=== PATIENT | female | born 1940 | race Caucasian/White ===

== ENCOUNTER 2021-03-23 14:25 | Emergency (ER) | payer MEDICARE, OTHER, SELFPAY ==
[2021-03-23 14:34] VITALS: BP 151/68; PULSE 66; RESP 16; TEMP 37.1; O2SAT 97
--- NOTE | 2021-03-23 14:45 | ED.GENADUL_ITS ---
Discharge Plan Disposition Patient Disposition: HOME Condition: Stable Discharge Details Clinical Impression: Constipation, Decreased appetite, Weight loss, Pyelonephritis Primary Care Provider: Unknown,Unknown ED Provider: Ru Wilburn [place] Meds and New Rx's Prescriptions: New ciprofloxacin HCl [Cipro] 500 mg tablet 500 mg PO BID Qty: 14 RF: 0 Continued lisinopril 20 mg Tablet 20 mg PO HS RF: 0 lisinopril 20 mg Tablet 20 mg PO BID RF: 0 hydralazine 50 mg Tablet 50 mg PO HS RF: 0 hydralazine 50 mg Tablet 50 mg PO TID RF: 0 metoprolol tartrate 25 mg Tablet 25 mg PO DAILY RF: 0 Xarelto 15 mg Tablet 15 mg PO DAILY RF: 0 Discharge Instructions Instructions: Kidney Infection (ED) Additional Instructions: Your laboratory studies look good. White count is normal. Kidney function is normal. CT scan suggests that there is a right kidney infection and swelling of the kidney and your urine is infected. You need to take your first antibiotic pill in the morning. There is a nodule in the lung that will require follow up Chest CT scan as outpatient. If you develop pain, fever, vomiting, confusion, o ther changes return to ED. Referrals: Primary Care Provider [Outside] Discharge Data Discharge Date/Time-TO BE ENTERED AT DEPARTURE: 03/23/21 19:25 Medical Decision Making <Mitra James DO - Last Filed: 03/26/21 13:19> 81-year-old female with a history of atrial fibrillation hypertension who presents for decreased appetite and 22 pound weight loss for the past 3 months with constipation for the past 3-weeks. Denies fever, vomiting, abdominal pain or urinary symptoms. She appears comfortable and nontoxic. Her vitals are within normal limits. Her abdomen is soft and nontender. She denies any rectal pain or bleeding so do not feel indication for rectal exam. Suspect her weight loss likely due to her decreased intake. As to the cause of her decreased appetite and intake, unclear if this is due to a medical organic cause or psychological. Also consider mass or small bowel obstruction although small bowel obstruction is less likely as she has no history abdominal surgery, vomiting or abdominal pain. Considering her age and history, will obtain screening labs, urinalysis, CT abdomen pelvis and give fluids and reassess. Case endorsed to Dr. Wilburn to follow-up on labs and imaging and final disposition. If work-up negative, plan for discharge to home with rec ommendations for enema, suppositories, magnesium citrate and MiraLAX. If she remains in the area, recommend follow-up with general surgery for reevaluation and upper endoscopy if indicated. Medical Records Medical records reviewed: Yes I reviewed the patient's medical records. <Ru Wilburn MD - Last Filed: 03/23/21 23:28> Patient signed out to me pending labs and imaging. She had presented with complaint of constipation and weight loss. She has no pain, vomiting, urinary symptoms, fever. Laboratory studies unremarkable. Urine with nitrite positive dipstick and many WBCs consistent with UTI. CT scan shows evidence of right hydronephrosis and proximal dilatation of the ureter. No obvious obstruction distally but visualization is poor due to scatter artifact from motion artifact. However, patient has no pain whatsoever including back, flank, abdomen. She is afebrile and remained afebrile. She has no elevated white count. I do not think clinically she has an obstructive stone. Will treat as pyelonephritis with a dose of IV ceftriaxone here and start ciprofloxacin orally in the morning. EKG was obtained and shows no prolonged QT. Note is made of nodule is not completely imaged in the right lung. This will need follow-up as outpatient. Patient plans to return to the she was at on Sunday. She will return here if any worsening symptoms before then. Lab Data Lab results reviewed: Yes I reviewed the patient's lab results. ECG Data Attestation: I personally reviewed and interpreted this ECG (s) as follows: Prior ECG tracings: not available for review Interpretation: see EKG HPI <Mitra James DO - Last Filed: 03/26/21 13:19> General Mode of arrival: ambulatory . Date/Time Provider Initiated Documentation: 03/23/21 14:30 . Limitations to Documentation: no limitations . Information obtained by: patient . HPI Narrative: Patient is an 81-year-old female with a history of atrial fibrillation and hypertension presents with decreased appetite and 22 pound weight loss over the past 3 months and c onstipation for the past 3 weeks. Patient states she has had not much of an appetite for the past 3 months which she thinks might be accounting for her weight loss. She states she does not usually feel like eating much. She states she lives in [place] but has been here for the past 2 months in and at her summer house. She states she took Dulcolax and a few enemas without relief. She states she is mainly having clear brown fluid leaking when she attempts a bowel movement but denies any large amount of diarrhea, rectal bleeding, rectal pain or other formed stool. She denies any fever, nausea, vomiting, abdominal pain, urinary symptoms. Related Data Home Medications Medication Instructions Recorded Confirmed Xarelto 15 mg PO DAILY 03/23/21 03/23/21 ciprofloxacin HCl [Cipro] 500 mg PO BID #14 tab 03/23/21 hydralazine 50 mg PO HS 03/23/21 03/23/21 hydralazine 50 mg PO TID 03/23/21 03/23/21 lisinopril 20 mg PO BID 03/23/21 03/23/21 lisinopril 20 mg PO HS 03/23/21 03/23/21 metoprolol tartrate 25 mg PO DAILY 03/23/21 03/23/21 Previous Rx's Medication Instructions Recorded ciprofloxacin HCl [Cipro] 500 mg PO BID #14 tab 03/23/21 Allergies Allergy/AdvReac Type Severity Reaction Status Date / Time No Known Allergies Allergy Unverified 03/23/21 14:39 General Stated Complaint: Nausea/Vomit/Diar GARY: 3 Review of Systems <Mitra James DO - Last Filed: 03/26/21 13:19> All systems reviewed & are unremarkable except as noted in HPI and below Constitutional Constitutional: Reports as per HPI, Denies chills and Denies fever(s) Eyes Eyes: Denies blurry vision ENT Ears, Nose, Mouth, and Throat: Denies dizziness, Denies sore throat and Denies throat swelling Cardiovascular Cardiovascular: Denies chest pain and Denies dyspnea Respiratory Respiratory: Denies cough and Denies dyspnea Gastrointestinal Gastrointestinal: Denies abdominal pain, Denies diarrhea and Denies vomiting Genitourinary Genitourinary: Denies hematuria and Denies dysuria Musculoskeletal Musculoskeletal: Denies back pain and Denies numbness Integumentary/Breasts Skin/Breast: Denies lesions and Denies rash Neurologic Neurologic: Denies dizziness, Denies localized weakness and Denies numbness Allergic/Immunologic Allergic/Immunologic: Denies throat swelling PFSH <Mitra James DO - Last Filed: 03/26/21 13:19> Medical History (Updated 03/23/21 @ 18:24 by Ru Wilburn MD) Atrial fibrillation HTN (hypertension) Surgical History (Updated 03/23/21 @ 16:16 by Mitra James DO) Hx of bilateral hip replacements Social History Smoking/Tobacco Use Status: Never Smoking risk assessment performed?: Yes Alcohol Intake: never Substance use type: does not use Do you feel safe at home: Yes Do you feel safe in your relationship?: Yes Exam <Mitra James DO - Last Filed: 03/26/21 13:19> Const General: cooperative, healthy appearing and no acute distress HENMT Head: normal to inspection Face and sinus: normal facial exam Eyes General: appearance normal, both eyes and all related structures EOM: EOM intact bilaterally Neck Neck: normal visual inspection and No submandibular swelling Lymphatic: no lymphadenopathy noted Chest Chest: normal inspection of the chest and no tenderness Resp Effort & Inspection: normal respiratory effort and able to speak in complete sentences Auscultation: clear to auscultation bilaterally Cardio Rate: regular rate Rhythm: regular rhythm GI Inspection: normal to inspection Palpation: soft, not firm, not rigid and nontender Auscultation: normal bowel sounds Skin General skin exam: no rashes or lesions noted Neuro General: patient alert, patient awake and patient oriented x3 Cognition: normal cognition Speech: speech normal Motor: muscle tone normal throughout Sensory Exam: no sensory deficits noted Extrem General: normal to inspection, full ROM, capillary refill normal, no calf tenderness bilaterally and no edema Psych Appearance: grossly normal Mental Status: mental status grossly normal Speech and Movement: speech and movement normal Affect: normal affect Course <Mitra James DO - Last Filed: 03/26/21 13:19> Vital Signs Vital signs: Vital Signs Temperature 98.8 F 03/23/21 14:34 Pulse 66 03/23/21 14:34 Respiratory Rate 16 03/23/21 14:34 Blood Pressure 151/68 H 03/23/21 14:34 Pulse Oximetry 97 03/23/21 14:34 Temperature 98.8 F 03/23/21 14:34 Temperature Source Skin 03/23/21 14:34 Pulse 66 03/23/21 14:34 Respiratory Rate 16 03/23/21 14:34 Respiratory Effort Non-Labored 03/23/21 14:41 Blood Pressure 151/68 H 03/23/21 14:34 Blood Pressure Position Supine 03/23/21 14:34 Pulse Oximetry 97 03/23/21 14:34 Oxygen Delivery Method Room Air 03/23/21 14:34 Oxygen Flow Rate 0 03/23/21 14:34 Sign Out <Mitra James DO - Last Filed: 03/26/21 13:19> Sign Out Data: Sign Out Comment: Follow-up on labs and imaging and final disposition. Constipation for 2 weeks. Also with decreased appetite and weight loss for 3 months. If imaging and work-up unremarkable, recommend suppositories, MiraLAX or magnesium citrate for constipation for home. Recommend follow-up with general surgery as an outpatient for reevaluation and consideration for outpatient upper endoscopy. Last updated by Mitra James DO at 03/23/21 15:56
--- NOTE | 2021-03-23 15:00 | DI.CT_ITS ---
Exam(s) CT ABDOMEN PELVIS W EXAM: CT ABDOMEN PELVIS W CLINICAL HISTORY: constipation, decreased appetite, weight loss TECHNIQUE: Imaging Protocol: Axial computed tomography images with coronal and sagittal reformatted images were created and reviewed CONTRAST MATERIAL: Intravenous: Omnipaque 350 Contrast volume:100 mL. There was infiltration at the injection site. Oral: No COMPARISON: No exams were available for comparison FINDINGS: ABDOMEN: Lung Bases: Bilateral basilar atelectasis. There is a 6 mm nodule in the right middle lobe. Is seen on the 1st image of the examination. Liver: Normal density. No measurable mass. The liver measures 13 cm length. Portal, Superior Mesenteric, and Splenic Veins: Unremarkable. Gallbladder and Biliary Tract: No radiodense calculus or dilation. Pancreas: Normal density, no abnormal calcifications or inflammatory process. Spleen: Normal. Adrenals: No masses seen. Kidneys: Normal size, contour and axis. There is moderate right hydronephrosis. There are few tiny h ypodensities in the left kidney which are too small for further characterization, but likely reflect small cysts. Abdominal Aorta: Abdominal portion non-dilated. Atherosclerosis. Bowel: No obstruction or bowel wall thickening. No evidence of appendicitis. There is diverticulosis of the descending and sigmoid colon. No evidence of acute diverticulitis. Peritoneal Cavity: No ascites, collection or mesenteric inflammatory response. No free air. Lymph Nodes: Within normal limits. Bones: Within normal limits for the patient's age. There are bilateral total hip replacements. The do cause artifact in the pelvis limiting evaluation of the urinary bladder and reproductive organs. Soft Tissues: Unremarkable. PELVIS: Bladder: No gross abnormality. There is limited visualization of the urinary bladder secondary to ar tifact from the patient's orthopedic hardware. Reproductive Organs: Unremarkable as visualized. Lymph Nodes: Within normal limits. Bones: Within normal limits for the patient's age. IMPRESSION: 1. Moderate right hydronephrosis and ureterectasis. The lower ureter and urinary bladder are largely obscured by artifact from the patient's bilateral total hip replacements. A stone or mass cannot be excluded in this area. Urology consult may be considered for further evaluation. 2. Right middle lobe pulmonary nodule. CT scan of the chest is recommended for further evaluation. RADIATION DOSE DELIVERED: 876.01mGy.cm Total DLP DATA REPOSITORY: All CT scans at this facility are submitted to the National Radiology Data Registry (NRDR) Dose Index Registry (DIR) with the [employer] ([employer]). RADIATION OPTIMIZATION: All CT scans at this facility use at least one of these dose optimization te chniques: automated exposure control; mA and/or kV adjustment per patient size (includes targeted exa ms where dose is matched to clinical indication); or iterative reconstruction.
[2021-03-23] MEDS: Normal Saline 1,000 ML 1000 ML IV (15:20)
[2021-03-23 15:32] LABS: Abs Immature Grans 0.03 10^3/uL (0.0-0.06); Absolute Basophil Count 0.05 10^3/uL (0.0-0.2); Absolute Eosinophil Count 0.07 10^3/uL (0.0-0.7); Absolute Lymphocyte Count 1.02 10^3/uL (1.2-3.4); Absolute Monocyte Count 0.97 10^3/uL (0.1-0.8); Absolute Neutrophil Count 7.76 10^3/uL (1.2-6.7); Basophils % 0.5; Eosinophils % 0.7; HCT 35.2 % (36.0-46.0); HGB 11.9 g/dL (11.2-15.7); Immature Grans % 0.3; Lymphocytes % 10.3; MCH 31.8 pg (27.0-33.0); MCHC 33.8 % (32.0-36.0); MCV 94.1 fL (80-95); MPV 11.1 fL (8.0-11.0); Monocytes % 9.8; Neutrophils % 78.4; Nucleated RBC 0 %; Platelet Count 243 10^3/uL (130-400); RBC 3.74 10^6/uL (3.93-5.22); RDW 13.6 % (11.7-14.6); RDW-SD 46.6 fL
[2021-03-23 16:28] LABS: Bilirubin Negative (Negative); Blood Negative (Negative); Clarity Sl Cloudy (Clear); Glucose Negative (Negative); Ketones 40 mg/dL (Negative); Leukocyte Esterase Moderate (Negative); Nitrite Positive (Negative); Urobilinogen 0.2 EU/dL (Up TO 0.2); pH 5.5 (5-8)
[2021-03-23 16:32] LABS: ALT 19 U/L (14-59); AST 20 U/L (15-37); Albumin 3.7 g/dL (3.4-5.0); Alkaline Phosphatase 66 U/L (46-116); Anion Gap 9.9 mmol/L (3-11); BUN 13 mg/dL (7-18); CO2 24.1 mmol/L (21.0-32.0); CREATININE 0.7 mg/dL (0.55-1.02); Calcium 9.4 mg/dL (8.5-10.1); Chloride 100 mmol/L (98-107); Glucose 97 mg/dL (74-106); Lipase 76 U/L (73-393); Potassium 4.3 mmol/L (3.5-5.1); Sodium 134 mmol/L (136-145); Total Protein 6.7 g/dL (6.4-8.2)
[2021-03-23 16:43] LABS: RBC Negative HPF (0-2); WBC >50 HPF (0-5)
[2021-03-23 16:44] LABS: Bacteria Moderate HPF (Negative); C & S Indicated? Yes; Crystals Negative HPF (Negative); Epithelial Cells Rare HPF (Negative); Mucus Negative (Negative)
[2021-03-23] MEDS: LORazepam 2 MG/ML VIAL 0.5 MG IVP (16:54)
[2021-03-23] MEDS: Normal Saline Flush 10 ML SYR IVP (16:55)
[2021-03-23] MEDS: Omnipaque 350 MG/ML 100 ML BTL IJ (17:18)
[2021-03-23] MEDS: Normal Saline - Diluent 50 ML VIAL IV (17:18)
[2021-03-23 17:46] VITALS: BP 138/57; PULSE 70; TEMP 36.8; O2SAT 96
--- NOTE | 2021-03-23 17:49 | DI.VRAD_ITS ---
PROCEDURE INFORMATION: Exam: CT Abdomen And Pelvis With Contrast Exam date and time: 03/23/2021 3:10 PM Age: 81 years old Clinical indication: Abdominal pain TECHNIQUE: Imaging protocol: Computed tomography of the abdomen and pelvis with contrast. COMPARISON: No relevant prior studies available. FINDINGS: Lungs: 8 mm nodule right lung base best seen axial series 5, image 1. This is incompletely visualized. Chest CT recommended. Heart: Very dense mitral annulus calcifications. Liver: Normal. No mass. Gallbladder and bile ducts: Normal. No calcified stones. No ductal dilation. Pancreas: Normal. No ductal dilation. Spleen: Normal. No splenomegaly. Adrenal glands: Normal. No mass. Kidneys and ureters: Moderate right hydronephrosis and proximal ureterectasis. Right perinephric soft tissue stranding. Stomach and bowel: Lateral plate and screw fixation and wire banding about the proximal right femoral shaft. Sigmoid diverticulosis and descending colon diverticulosis. No evidence of diverticulitis. Appendix: No evidence of appendicitis. Intraperitoneal space: Unremarkable. No free air. No significant fluid collection. Vasculature: Diffuse vascular calcifications. No aneurysm identified. Bilateral common iliac arteries are ectatic measuring 1.5 cm on the left and 1.4 cm on the right. Lymph nodes: Unremarkable. No enlarged lymph nodes. Urinary bladder: Diffuse thickening of the wall the urinary bladder. Reproductive: The uterus is not visualized but the reproductive organs are obscured by metallic artifact. Bones/joints: Bilateral hip arthroplasties. 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 Soft tissues: Unremarkable. Other findings: Metallic artifact obscures detail in the pelvis. Images are degraded by motion. IMPRESSION: 1. Moderate right hydronephrosis and proximal ureterectasis. Right perinephric soft tissue stranding. Findings are suspicious for lower obstruction. No stone is identified but images of the pelvis are degraded by motion artifact which makes it difficult to evaluate the lower ureters and the bladder for signs of stones in the lower ureters and bladder. 2. 8 mm partially visualized indeterminate nodule in the right lower lung. Chest CT recommended. 3. Other incidental findings as described. Dictated and Authenticated by: Peace Lara MD. Ordering:WILSON Manriquez MD
--- NOTE | 2021-03-23 18:15 | RT.EKG_ITS ---
APPROVED REPORT Exam: Resting ECG Reason for Exam: interval check Patient Location: E HR:66 bpm ECG Measurements Heart Rate 66 AXIS [place] 172 P 71 QRSd 94 QRS 19 QT 400 T 40 QTc 418 Conclusion Sinus rhythm...normal P axis, V-rate 60- 99 Normal [place] Normal Electrocardiogram
[2021-03-23] MEDS: cefTRIAXone 1 GM/50 ML BAG IVPB (18:31)
[2021-03-23 19:16] VITALS: BP 137/60; PULSE 72; RESP 16; TEMP 37.1; O2SAT 96
[2021-03-23 19:25] VITALS: BP 137/60; PULSE 72; RESP 16; TEMP 37.1; O2SAT 96
== END 2021-03-23 19:25 | disposition home or self-care (01) ==
PROVIDERS: Physician Assistant; Emergency Provider Emergency Medicine
DX: N10 Acute pyelonephritis (principal); K59.00 Constipation, unspecified; R63.0 Anorexia; R63.4 Abnormal weight loss; R91.1 Solitary pulmonary nodule
CPT/HCPCS: 36415; 80053; 83690; 87077; 93005; 96361; 96365; 96375; 99285; 74177; 81003; 81015; 85025; 87086; 87186; 93010; J0696; J2060; J3490